=== PATIENT | female | born 1985 | race African-American/Black ===

== ENCOUNTER 2016-11-01 17:37 | Emergency (ER) | payer OTHER ==
[~2016-11-01] VITALS: Ht 170.2 cm; Wt 76.2 kg
[~2016-11-01 17:37] MED LIST: IBUPROFEN600 M1 PO; IBUPROFEN800 M1 PO; PREDNISONE20 M1 PO; ZITHROMAX250 M2 PO
--- NOTE | 2016-11-01 18:21 | ED GENERAL ADULT ---
History of Present Illness General Chief Complaint: Low Back Pain/Injury Stated Complaint: PAIN IN BACK Source: patient Exam Limitations: no limitations Vital Signs & Intake/Output Vital Signs & Intake/Output Vital Signs Date Time Temp Pulse Resp B/P Pulse O2 O2 Flow FiO2 Ox Delivery Rate 11/01 2044 98.0 78 18 125/76 99 Room Air 11/01 1752 98.2 77 16 132/87 100 Room Air Allergies Coded Allergies: amoxicillin (Mild, RASH 01/25/16) pollen extracts (Mild, RUNNY NOSE AND EYES 01/25/16) Reconcile Medications Cyclobenzaprine HCl 5 MG TABLET 1 TAB PO TID PRN MUSCLE SPASMS (Reported) Cyclobenzaprine HCl 10 MG TABLET 1 TAB PO TID SPASMS Hydrocodone/Acetaminophen (Hydrocodon-Acetaminophen 5-325) 5 MG-325 MG TABLET 1-2 TAB PO Q4-6 PRN PRN pain Naproxen (EC-Naprosyn) 500 MG TABLET.DR 1 TAB PO BID PAIN/INFLAMMATION ( Reported) Triage Note: TO ED WITH RIGHT BACK/THORACIC PAIN SINCE FRIDAY. DENIES CHEST PAIN OR ABD PAIN. DENIES SOB OR PAIN WITH INSPIRATION. TOOK IBUPROFEN AND NAPROXEN WITH NO IMPROVEMENT. WENT TO URGENT CARE YESTERDAY, DETERMINED TO BE MUSCLE SPRAIN. PT REPORTS IT DOES NOT FEEL MUSCULAR IN NATURE Triage Nurses Notes Reviewed? yes Onset: Abrupt Duration: week(s): (1), constant, continues in ED Timing: recent history Injury Environment: home Severity: moderate, severe : No Patient currently breastfeeds: No HPI: 31-year-old female comes into emergency room with complaints of right upper back pain has been going on for about a week. Pain is sharp. Continuous. Worse with certain movements. Worse with sitting up. Denies any shortness of breath chest pain cough fever chills vomiting. Denies any rashes. Denies any injuries that she is aware of. Nothing seemed to make the symptoms better or worse. Denies any other associated symptoms. (WAYNE GONSALVES) Past History Travel History Traveled to [place] past 21 day No Medical History Any Pertinent Medical History? 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 No (WAYNE GONSALVES) Review of Systems Review of Systems Constitutional: Reports: no symptoms. EENTM: Reports: no symptoms. Respiratory: Reports: no symptoms. Cardiovascular: Reports: no symptoms. GI: Reports: no symptoms. Genitourinary: Reports: no symptoms. Musculoskeletal: Reports: see HPI. Skin: Reports: no symptoms. Neurological/Psychological: Reports: no symptoms. Hematologic/Endocrine: Reports: no symptoms. Immunologic/Allergic: Reports: no symptoms. All Other Systems: Reviewed and Negative (WAYNE GONSALVES) Physical Exam Physical Exam General Appearance: well developed/nourished, no apparent distress, alert Head: atraumatic, normal appearance Eyes: Bilateral: normal appearance, EOMI. Ears, Nose, Throat: normal pharynx, normal ENT inspection Neck: normal inspection, full range of motion Respiratory: normal breath sounds, no respiratory distress Cardiovascular: regular rate/rhythm Gastrointestinal: soft Back: normal inspection, RIGHT PARASPINAL TENDERNESS Extremities: normal inspection, normal range of motion Neurologic/Psych: awake, alert, oriented x 3, normal gait, normal mood/affect Skin: intact, normal color Core Measures ACS in differential dx? No CVA/TIA Diagnosis: No Severe Sepsis Present: No Septic Shock Present: No (WAYNE GONSALVES) Progress Differential Diagnoses I considered the following diagnoses in my evaluation of the patient: Plan of Care: Orders Procedure Date/time Status COMPREHENSIVE METABOLIC PANEL 11/01 182 Complete CBC WITHOUT DIFFERENTIAL 11/01 1820 Complete URINE 11/01 174 Complete URINALYSIS 11/01 174 Complete Laboratory Tests 11/01/161950: Anion Gap 11, Estimated GFR > 60, BUN/Creatinine Ratio 12.2, Glucose 91, Calcium 9.7, Total Bilirubin 0.3, AST 21, ALT 33, Alkaline Phosphatase 62, Total Protein 7.9, Albumin 4.2, Globulin 3.7, Albumin/Globulin Ratio 1.1 11/01/161857: CBC w Diff NO MAN DIFF REQ, RBC 4.86, MCV 82.4, MCH 27.0, RDW 12.9, MPV 7.7, Gran % 48.3, Lymphocytes % 44.6, Monocytes % 3.7, Eosinophils % 3.0, Basophils % 0.4, Absolute Granulocytes 3.4, Absolute Lymphocytes 3.2, Absolute Monocytes 0.3 , Absolute Eosinophils 0.2, Absolute Basophils 0, PUBS MCHC 32.7 L 11/01/16 1754: Urine Color YEL, Urine Clarity CLEAR, Urine pH 6.5, Ur Specific [place] <= 1.005 , Urine Protein NEG, Urine Ketones NEG, Urine Nitrite NEG, Urine Bilirubin NEG, Urine Urobilinogen 0.2, Ur Leukocyte Esterase NEG, Ur Microscopic EXAM NOT REQUIRED, Urine Hemoglobin NEG, Urine Glucose NEG, Urine Test NEGATIVE Diagnostic Imaging: Viewed by Me: Radiology Read. Discussed w/RAD: Radiology Read. Radiology Impression: XAM TYPE: RAD - XRY-THORACIC SPINE EXAMINATION: XR THORACIC SPINE CLINICAL INFORMATION: Right-sided back pain. COMPARISON: None TECHNIQUE: 2 views of the thoracic spine were obtained. FINDINGS: There is no fracture or bone destruction seen. The vertebral alignment is normal. There is no disc space narrowing. There is no abnormality of the paraspinal soft tissues. IMPRESSION: Normal thoracic spine radiographs., EXAM TYPE: RAD - XRY-CHEST XRAY, PA AND LATERAL EXAMINATION: XR CHEST, 2 VIEWS CLINICAL INFORMATION: Right-sided back pain. COMPARISON: None. TECHNIQUE: PA and lateral views of the chest were obtained. FINDINGS: Lungs are clear. No consolidation, pneumothorax, or pleural effusion. Cardiac and mediastinal contours are normal. Pulmonary vasculature is unremarkable. Trachea is midline. Osseous structures are unremarkable. IMPRESSION: Normal chest radiographs. Initial ED EKG: none Comments: 11/01/2016 8:37:51 PM - PERC SCORE and low probability well's criteria. No suspicion for pulmonary embolism at this time. Pain is likely muscular in nature. No rash appreciable on exam. Patient has no cardiac or pulmonary complaints. Patient be treated as musculoskeletal pain at this time. Follow-up with primary care doctor. Return if any other concerns worsening symptoms. Patient understands and agrees with plan of care. (YADI MIN,WAYNE) Departure Departure Disposition: HOME OR SELF CARE Condition: Stable Clinical Impression Primary Impression: Back pain Referrals: JERRICA BATEMAN MD (PCP/Family) Additional Instructions: Take Vicodin and Flexeril as prescribed. Follow-up with your primary care doctor. Return if any concerns worsening symptoms. Please go over all results of today's visit with your primary care doctor. Contact your primary care doctor to let them know you were here in the emergency room. There may be nonspecific findings which may not be related to your visit today here in the emergency room but may require further evaluation and chronic monitoring by your primary care doctor. If you had a laceration today the chance of foreign body always remains. You should follow-up with your primary care doctor for recheck in 3-5 days for a wound check. If you had an x-ray done there is a chance that a fracture could have been missed on initial read and you should follow-up with your primary care doctor for repeat x-rays if symptoms persist. If your blood pressure was elevated here in the emergency room please have rechecked by her primary care doctor within the next 48 hours by your primary care doctor. If you were prescribed a narcotic here in the emergency room or any type of controlled substances you're not allowed to drive while taking this medication or operate any type of heavy machinery. Narcotics can make you feel lightheaded dizziness nausea and can cause constipation. You may need to sweet pickle maker a stool softener. Thank you for choosing [facility] emergency room. Please return to the emergency room immediately if you have any other concerns worsening of symptoms. Departure Forms: Customer Survey General Discharge Information Prescriptions: Current Visit Scripts Hydrocodone/Acetaminophen (Hydrocodon-Acetaminophen 5-325) 1-2 TAB PO Q4-6 PRN PRN pain #15 TAB Cyclobenzaprine HCl 1 TAB PO TID #20 TAB (WAYNE GONSALVES) PA/DICTAPHONE MECHANIC Co-Sign Statement Statement: ED Attending supervision documentation- [] I saw and evaluated the patient. I have also reviewed all the pertinent lab results and diagnostic results. I agree with the findings and the plan of care as documented in the PA's/DICTAPHONE MECHANIC's documentation. [X] I have reviewed the ED Record and agree with the PA's/DICTAPHONE MECHANIC's documentation. [] Additions or exceptions (if any) to the PAs/DICTAPHONE MECHANIC's note and plan are summarized below: [] (LINDA JONES,COLEEN) Critical Care Note Critical Care Note Critical Care Time: non-applicable (WAYNE GONSALVES)
[2016-11-01 19:07] LABS: ABSOLUTE BASOPHIL COUNT 0 /CUMM (0.0-0.2); ABSOLUTE EOSINOPHIL COUNT 0.2 /CUMM (0.0-0.7); ABSOLUTE GRANULOCYTE CT 3.4 /CUMM (1.4-6.5); ABSOLUTE LYMPH COUNT 3.2 /CUMM (1.2-3.4); ABSOLUTE MONOCYTE COUNT 0.3 /CUMM (0.10-0.60); BASOPHIL % 0.4 % (0.0-2.0); GRANULOCYTE % 48.3 % (42.2-75.2); MEAN CORPUSCULAR HGB CONC 32.7 G/DL (33.0-37.0); MEAN CORPUSCULAR VOLUME 82.4 FL (81.0-99.0); MEAN PLATELET VOLUME 7.7 FL (7.4-10.4); PLATELET COUNT 313 /CUMM (130-400); RBC DISTRIBUTION WIDTH 12.9 % (11.5-14.5); RED BLOOD CELL CT 4.86 /CUMM (4.20-5.40); WHITE BLOOD CELL COUNT 7.1 /CUMM (4.8-10.8)
[2016-11-01] MEDS ORDERED: EC-NAPROSYN500 MG PO (19:13)
[2016-11-01] MEDS ORDERED: CYCLOBENZAPRINE5 M2 PO (19:14)
--- NOTE | 2016-11-01 20:13 | RADIOLOGY REPORT ---
EXAMINATION: XR CHEST, 2 VIEWS CLINICAL INFORMATION: Right-sided back pain. COMPARISON: None. TECHNIQUE: PA and lateral views of the chest were obtained. FINDINGS: Lungs are clear. No consolidation, pneumothorax, or pleural effusion. Cardiac and mediastinal contours are normal. Pulmonary vasculature is unremarkable. Trachea is midline. Osseous structures are unremarkable. IMPRESSION: Normal chest radiographs.
--- NOTE | 2016-11-01 20:13 | RADIOLOGY REPORT ---
EXAMINATION: XR THORACIC SPINE CLINICAL INFORMATION: Right-sided back pain. COMPARISON: None TECHNIQUE: 2 views of the thoracic spine were obtained. FINDINGS: There is no fracture or bone destruction seen. The vertebral alignment is normal. There is no disc space narrowing. There is no abnormality of the paraspinal soft tissues. IMPRESSION: Normal thoracic spine radiographs.
[2016-11-01 20:45] VITALS: BP 125/76
[2016-11-01] MEDS ORDERED: HYDROCODON-ACE1 EAC2 PO (20:48)
[2016-11-01] MEDS ORDERED: CYCLOBENZAPRINE10 M1 PO (20:48)
== END 2016-11-01 20:57 ==
LOC: ERH 17:37
PROVIDERS: Physician Assistant Medical
DX: M54.9 Dorsalgia, unspecified (principal)
CPT/HCPCS: 72070; 81003; 81025